=== PATIENT | male | born 1975 | race Caucasian/White ===

== ENCOUNTER 2019-10-18 09:34 | Outpatient (CLI) | payer BC ==
--- NOTE | 2019-10-18 13:30 | MRI ---
MRI LEFT KNEE: 10/18/19 PROVIDED CLINICAL HISTORY: Pain. FINDINGS: The anterior cruciate ligament, posterior cruciate ligament, medial collateral ligament and lateral c ollateral ligamentous complex demonstrate an intact MR appearance, as does the extensor mechanism. There is complex tearing of the medial meniscus, with a full thickness radial tear involving the post erior horn/body junction and complex nondisplaced tearing involving the body of the medial meniscus. The lateral meniscus demonstrates no evidence for tear. No focal articular cartilage defect is apparent. There is a moderate-large knee joint effusion with Lovett's cyst formation. No focal concerning region al marrow or muscular signal abnormality apparent. IMPRESSION: 1. Medial meniscal tear as described. 2. Moderate knee joint effusion. POS: C
== END 2019-10-18 09:35 | disposition home or self-care (01) ==
LOC: TBSIIMAG 09:34
PROVIDERS: ATTEND Orthopaedic Surgery
DX: M23.92 Unspecified internal derangement of left knee (principal); S83.242A Other tear of medial meniscus, current injury, left knee, initial encounter; M25.462 Effusion, left knee